=== PATIENT | female | born 1960 | race Caucasian/White ===

== ENCOUNTER 2025-02-11 10:45 | Emergency (ER) | payer OTHER ==
--- OUTSIDE RECORDS SUMMARY | 2025-02-11 10:47 | XMS REPORT | Continuity of Care Document ---
Author Name Unknown Address [address] [place] [address] [facility] Address 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 Name Role Phone EPIFANIO HDZ Primary Care Physician Unav ailable RADIOLOGY Attending Clinician Unavailable Radiology Attending Clinician Unavailable Doctor Unassigned, Watrous Attending Clinician U navailable LISA, OFONIME Admitting Clinician Unavailable Payers Payer Name Policy Type Policy Number Effective Date Expirati on Date Source [employer] [place] [employer] [id number] 2018 00:00:00 Allergies, Adverse Reactions, Alerts Allergy Name Allergy Type Status Severity Reaction(s) Onset Date Inactive Date Treating Clinician Comments Source NO KNOWN ALLERGIE S Drug Class Active [facility] Social History Social Habit Start Date Stop Date Quantity Comments Source Sex Assigned At 1960 00:00:00 1960 00:00:00 [facility] Smoking Status Start Date Stop Date Source Unknown if ever smoked [facility]ive [facility] Procedures Procedure Date / Time Performed Performing Clinicia n Source XR FOOT 3+ VW LEFT 2021-12-06 18:36:00 [facility]ENEF[facility] 2021-12-06 18:21:37 Docto r Unassigned, Watrous [facility] XR CHEST 2 VW 2020-12-04 17:39:01 Kevin Murguia [facility] Encounters Start Date/Time End Date/Time Encounter Type Admission Type Attending Clinicians Care Facility Care Department Encounter ID Source 2021-12-06 13:24:27 2021-12-06 23:59:00 Outpatient R RADIOLOGY [facility] [id number] [facility] 2021-12-06 13:15:00 2021-12-06 23:59:00 Hospital Encounter Radiology [facility] [id number] [facility] 2021-12-06 00:00:00 2021-12-06 00:00:00 Orders Only Doctor Unassigned, Watrous [facility] [id number] [facility] 2020-12-04 12:21:50 2020-12-04 23:59:00 Hospital Encounter Radiology [facility] [id number] [facility] 2020-12-04 00:00:00 2020-12-04 00:00:00 Outpatient R RADIOLOGY [facility] [id number] [facility] Results Test Description Test Time Test Comments Results Resul t Comments Source XR CHEST 2 VW 2020-11-15 1 21:07:42 No acute cardiopulmonary disease. CHEST 2 VIEWS: HISTORY:Cough TECHNIQUE:: ?PA and lateral views of the chest are obtained. FINDINGS: The lungs are clear. Heart size is slightly enlarged.Calcificati ons are seen in the aortic arch.. No pleural effusion orpneumothorax is seen. [facility], Radiant Results Inft User - 12/04/2020 4:08 PM CDT CHEST 2 VIEWS:HISTORY:CoughT ECHNIQUE:: PA and lateral views of the chest are obtained. FINDINGS: The lungs are clear. Heart size is slightly enlarged.Calcificati ons are seen in the aortic arch.. No pleural effusion orpneumothorax is seen.IMPRESSIONNo acute cardiopulmonary disease. [facility]
[2025-02-11 12:54] LABS: Absolute Lymphocytes (CBC) 1.0 K/uL (0.7-4.9); Hematocrit 27.1 % (36.0-45.0); Hemoglobin 7.9 g/dL (12.0-15.0); MCH 20.8 pg (27.0-35.0); MCHC 29.0 g/dL (32.0-36.0); MCV 71.8 fL (80-100); MPV 7.4 fL (7.6-11.3); Nucleated RBC Absolute Count 0.0 (0-0); Nucleated Red Blood Cells % 0.0 % (0-0); RBC Red Blood Cell Count 3.78 M/uL (3.86-4.86); White Blood Count 6.30 thou/uL (4.3-10.9)
[2025-02-11 13:20] LABS: ALT/SGPT 31.0 U/L (13-56); AST/SGOT 35.0 U/L (15-37); Albumin 3.0 g/dL (3.4-5.0); Albumin/Globulin Ratio 0.7 (1.1-1.8); Alkaline Phosphatase 87.0 U/L (45-117); Anion Gap 9.8 mEq/L (5.0-15.0); BUN Blood Urea Nitrogen 6.0 mg/dL (7-18); Ferritin 5.8 ng/mL (8-252); Globulin 4.3 g/dL (2.3-3.5); Glucose Level 97.0 mg/dL (74-106); Potassium 3.8 mEq/L (3.5-5.1)
[2025-02-11 13:43] LABS: Blood Morphology Comment NOTED (NOT SEEN); Hypochromasia 1+; White Blood Cell Scan OK (OK)
[2025-02-11] MEDS ORDERED: NA CHLORIDE 0.9% 250 ML ONE (15:33)
--- NOTE | 2025-02-11 17:59 | ER ---
Nurse's Notes [facility] Name: Patti Penny Age: 64 yrs Sex: Female : 1960 Arrival Date: 02/11/2025 Time: 10:45 Bed 15 Private MD: Diagnosis: Anemia, unspecified;Iron deficiency anemia, unspecified Presentation: 02/11 11:06 Chief complaint: Patient states: "I had blood work with my doctor and they think I have aa5 an ulcer but today they called me and said my hemoglobin was 7.4 and to come to the ER". Pt reports fatigue and SOB on exertion x 2-3 months. Coronavirus screen: At this time, the client does not indicate any symptoms associated with coronavirus-19. Ebola Screen: Patient denies travel to an Ebola-affected area in the 21 days before illness onset. Initial Sepsis Screen: Does the patient meet any 2 criteria? HR > 90 bpm. Does the patient have a suspected source of infection? No. Patient's initial sepsis screen is negative. Risk Assessment: Do you want to hurt yourself or someone else? Patient reports no desire to harm self or others. Onset of symptoms was February 11, 2025. 11:06 Acuity: RUBEN 3 aa5 11:06 Method Of Arrival: Ambulatory aa5 Historical: - Allergies: 11:08 No Known Allergies; aa5 - Home Meds: 11:08 None [Active]; aa5 - PMHx: 11:08 None; aa5 - PSHx: 11:08 cataracts; aa5 - Immunization history:: Adult Immunizations unknown. - Infectious Disease History:: Denies. - Social history:: Smoking status: Patient denies any tobacco usage or history of. Screenin:01 [facility] ED Fall Risk Assessment (Adult) History of falling in the last 3 months, cm10 including since admission No falls in past 3 months (0 pts) Confusion or Disorientation No (0 pts) Intoxicated or Sedated No (0 pts) Impaired Gait No (0 pts) Mobility Assist Device Used No (0 pt) Altered Elimination No (0 pt) Score/Fall Risk Level 0 - 2 = Low Risk Oriented to surroundings, Maintained a safe environment, Hourly rounding (assess needs \\T\\ fall precautionary measures) done. Abuse screen: Denies threats or abuse. Denies injuries from another. Nutritional screening: No deficits noted. Tuberculosis screening: No symptoms or risk factors identified. Assessment: 12:59 General: Appears in no apparent distress. comfortable, Behavior is calm, cooperative, cm10 appropriate for age. Pain: Denies pain. Neuro: No deficits noted. Level of Consciousness is awake, alert, obeys commands, Oriented to person, place, time, situation, Appropriate for age. Cardiovascular: Patient's skin is warm and dry. Respiratory: No deficits noted. Airway is patent Respiratory effort is even, unlabored, Respiratory pattern is regular, symmetrical, Breath sounds are clear bilaterally. Derm: No deficits noted. No signs and/or symptoms reported regarding the dermatologic system. Skin is pink, warm \\T\\ dry. Musculoskeletal: No deficits noted. Range of motion: intact in all extremities. 13:58 Reassessment: Patient appears in no apparent distress at this time. Patient and/or kj2 family updated on plan of care and expected duration. Pain level reassessed. Patient is alert, oriented x 3, equal unlabored respirations, skin warm/dry/pink. 14:51 Reassessment: Patient appears in no apparent distress at this time. Patient and/or kj2 family updated on plan of care and expected duration. Pain level reassessed. Patient is alert, oriented x 3, equal unlabored respirations, skin warm/dry/pink. 16:00 Reassessment: Patient appears in no apparent distress at this time. Patient and/or kj2 family updated on plan of care and expected duration. Pain level reassessed. Patient is alert, oriented x 3, equal unlabored respirations, skin warm/dry/pink. 16:25 Reassessment: Patient appears in no apparent distress at this time. Patient and/or kj2 family updated on plan of care and expected duration. Pain level reassessed. blood transfusion started. 17:25 Reassessment: Patient appears in no apparent distress at this time. Patient and/or kj2 family updated on plan of care and expected duration. Pain level reassessed. Patient is alert, oriented x 3, equal unlabored respirations, skin warm/dry/pink. 18:15 Reassessment: blood still transfusing. kj2 18:56 Reassessment: Patient appears in no apparent distress at this time. Patient and/or kj2 family updated on plan of care and expected duration. Pain level reassessed. Patient is alert, oriented x 3, equal unlabored respirations, skin warm/dry/pink. blood stopped. Vital Signs: 11:06 BP 153 / 85; Pulse 100; Resp 18 S; Temp 98.7(O); Pulse Ox 99% on R/A; Weight 89.36 kg aa5 (R); Height 5 ft. 3 in. (R); 12:19 BP 149 / 69; Pulse 105; Temp 98.2; Pulse Ox 100% ; Weight 89.36 kg; Height 5 ft. 3 in. pm7 ; Pain 0/10; 13:00 BP 123 / 65; Pulse 98; Resp 16 S; Pulse Ox 100% ; cm10 14:51 BP 124 / 71; Pulse 99; Resp 18; Pulse Ox 100% on R/A; kj2 16:00 BP 139 / 71; Pulse 97; Resp 18; Pulse Ox 99% on R/A; kj2 16:25 BP 136 / 65; Pulse 94; Resp 18; Temp 98.3; Pulse Ox 100% on R/A; kj2 17:25 BP 134 / 62; Pulse 90; Resp 18; Temp 98.1; Pulse Ox 100% ; kj2 18:25 BP 138 / 62; Pulse 94; Resp 20; Temp 98.1; Pulse Ox 100% ; kj2 18:56 BP 140 / 59; Pulse 89; Resp 20; Temp 98.2; Pulse Ox 100% ; kj2 12:19 Body Mass Index 34.90 (89.36 kg, 160.02 cm) pm7 12:19 Pain Scale: Adult pm7 ED Course: 10:48 Patient arrived in ED. im 10:49 Tate Duque FNP-C is PHCP. cm10 10:49 Audi Watters MD is Attending Physician. cm10 11:06 Arm band placed on. aa5 11:07 Triage completed. aa5 12:59 Deloris Herrera, FRED is Primary Nurse. cm10 13:01 Patient has correct armband on for positive identification. Placed in gown. Call light cm10 in reach. Side rails up X 1. Pulse ox on. NIBP on. 13:02 Inserted saline lock: 20 gauge in left antecubital area, using aseptic technique. Blood cm10 collected. Flushed with 10 mL NS. 13:49 Report given to FRED Lazo. cm10 13:54 Violet Vargas, RN is Primary Nurse. kj2 13:58 Report received from Singh Puentes RN. kj2 14:08 Initial lab(s) drawn, by seed laboratory technician, sent to lab. ts3 19:25 No provider procedures requiring assistance completed. IV discontinued, intact, kj2 bleeding controlled, No redness/swelling at site. Pressure dressing applied. Administered Medications: No medications were administered Medication: 13:01 VIS not applicable for this client. cm10 Outcome: 17:59 Discharge ordered by . dr5 18:59 Patient left the ED. kj2 Signatures: Lay Conner, RN RN aa5 Karissa Ceron Clarissa, RN RN cm10 Violet Vargas RN RN kj2 Tate Duque, BUNG DROPPER-C BUNG DROPPER-Cdr5 Bushra Cee ts3 Ana Paula Pierre pm7 Corrections: (The following items were deleted from the chart) 14:10 14:08 Lab(s) recollected, by seed laboratory technician, sent to lab. ts3 ts3 16:11 16:00 BP 113 / 65; Pulse 109bpm; Resp 20bpm; Pulse Ox 96%; kj2 kj2
--- NOTE | 2025-02-11 18:00 | EDPHYS ---
Physician Documentation [facility] Name: Patti Penny Age: 64 yrs Sex: Female : 1960 Arrival Date: 02/11/2025 Time: 10:45 Bed 15 Private MD: ED Physician Audi Watters HPI: 02/11 12:29 This 64 yrs old Female presents to ER via Ambulatory with complaints of dr5 Abnormal Lab Results - low hemoglobin. 12:29 Onset: The symptoms/episode began/occurred 3 month(s) ago. Patient is a 64 female with dr5 no past medical history coming in with fatigue and weakness has been going on for the past 3 months. Patient reports that she is felt tired and weak when she ambulates. Patient denies hemoptysis, melena, hematuria, or any other bleeding. Patient reports that she finally got blood work done and found to have low hemoglobin. Patient denies any chest pain, shortness of breath or complaints at this time. Patient states that she was sent here for blood transfusion.. Historical: - Allergies: 11:08 No Known Allergies; aa5 - Home Meds: 11:08 None [Active]; aa5 - PMHx: 11:08 None; aa5 - PSHx: 11:08 cataracts; aa5 - Immunization history:: Adult Immunizations unknown. - Infectious Disease History:: Denies. - Social history:: Smoking status: Patient denies any tobacco usage or history of. ROS: 12:29 Constitutional: as per hpi dr5 Exam: 12:29 Constitutional: This is a well developed, well nourished patient who is awake, alert, dr5 and in no acute distress. Head/Face: Normocephalic, atraumatic. Eyes: Pupils equal round and reactive to light, extra-ocular motions intact. Lids and lashes normal. Conjunctiva and sclera are non-icteric and not injected and pale. Cornea within normal limits. Periorbital areas with no swelling, redness, or edema. Neck: Trachea midline, no thyromegaly or masses palpated, and no cervical lymphadenopathy. Supple, full range of motion without nuchal rigidity, or vertebral point tenderness. No Meningismus. Chest/axilla: Normal chest wall appearance and motion. Nontender with no deformity. No lesions are appreciated. Cardiovascular: Regular rate and rhythm with a normal S1 and S2. Normal PMI, no JVD. No pulse deficits. Respiratory: Lungs have equal breath sounds bilaterally, clear to auscultation. No rales, rhonchi or wheezes noted. No increased work of breathing, no retractions or nasal flaring. Back: No spinal tenderness. No costovertebral tenderness. Full range of motion. Skin: Warm, dry with normal turgor. Normal color with no rashes, no lesions, and no evidence of cellulitis. MS/ Extremity: Pulses equal, no cyanosis. Neurovascular intact. Full, normal range of motion. Neuro: Awake and alert, GCS 15, oriented to person, place, time, and situation. Cranial nerves II-XII grossly intact. Motor strength 5/5 in all extremities. Sensory grossly intact. Cerebellar exam normal. Normal gait. Vital Signs: 11:06 BP 153 / 85; Pulse 100; Resp 18 S; Temp 98.7(O); Pulse Ox 99% on R/A; Weight 89.36 kg aa5 (R); Height 5 ft. 3 in. (R); 12:19 BP 149 / 69; Pulse 105; Temp 98.2; Pulse Ox 100% ; Weight 89.36 kg; Height 5 ft. 3 in. pm7 ; Pain 0/10; 13:00 BP 123 / 65; Pulse 98; Resp 16 S; Pulse Ox 100% ; cm10 14:51 BP 124 / 71; Pulse 99; Resp 18; Pulse Ox 100% on R/A; kj2 16:00 BP 139 / 71; Pulse 97; Resp 18; Pulse Ox 99% on R/A; kj2 16:25 BP 136 / 65; Pulse 94; Resp 18; Temp 98.3; Pulse Ox 100% on R/A; kj2 17:25 BP 134 / 62; Pulse 90; Resp 18; Temp 98.1; Pulse Ox 100% ; kj2 18:25 BP 138 / 62; Pulse 94; Resp 20; Temp 98.1; Pulse Ox 100% ; kj2 18:56 BP 140 / 59; Pulse 89; Resp 20; Temp 98.2; Pulse Ox 100% ; kj2 12:19 Body Mass Index 34.90 (89.36 kg, 160.02 cm) pm7 12:19 Pain Scale: Adult pm7 MDM: 10:50 Medical Screening Exam initiated dr5 18:04 Differential diagnosis: Iron deficiency anemia, electrolyte abnormality, acute kidney dr5 injury. Data reviewed: vital signs, nurses notes. 18:35 Consideration of Admission/Observation Escalation of care including dr5 admission/observation considered. Admission considered if patient found to be anemic with worsening labs from yesterday.. I considered the following discharge prescriptions or medication management in the emergency department I discussed and recommended Over The Counter medications, Medications were administered in the Emergency Department. See MAR. Test considered but Not performed: CT: CT scan considered but not done due to no melena and patient not having nausea, vomiting, or abdominal pain.. Historians other than the Patient: Spouse/Significant Other: Spouse at bedside. Care significantly affected by the following Social Determinants of Health: Poor access to healthcare and/or lack of insurance, Poor access to transportation, Problems related to employment. Counseling: I had a detailed discussion with the patient and/or guardian regarding the historical points, exam findings, and any diagnostic results supporting the discharge/admit diagnosis, the presence of at least one elevated blood pressure reading (>120/80) during this emergency department visit, lab results, the need for outpatient follow up, for definitive care, a family practitioner, to return to the emergency department if symptoms worsen or persist or if there are any questions or concerns that arise at home. Response to treatment: the patient's symptoms have markedly improved after treatment. Special discussion: I discussed with the patient/guardian in detail that at this point there is no indication for admission to the hospital. It is understood, however, that if the symptoms persist or worsen the patient needs to return immediately for re-evaluation. Further emergent ED testing is not indicated at this point in time. I discussed with the patient/guardian in detail the need to arrange with the PCP or specialist further outpatient testing, Anemia workup. Based on the history and exam findings, there is no indication for further emergent testing or inpatient evaluation. I discussed with the patient/guardian the need to see the primary care provider for further evaluation of the symptoms. ED course: Patient received 1 unit of blood and feels much better. Will start patient on iron. All questions answered. Strict ER precautions given. Labs printed out given to patient to take to her primary care doctor.. 02/11 11:12 Order name: CBC with Diff; Complete Time: 13:44 dr5 02/11 11:12 Order name: CMP; Complete Time: 13:26 dr5 02/11 11:12 Order name: Iron Level; Complete Time: 13:26 dr5 02/11 12:58 Order name: CBC Smear Scan; Complete Time: 13:44 EDMS 02/11 13:54 Order name: PRBC dr5 02/11 13:56 Order name: ABO/RH typing EDMS 02/11 13:56 Order name: Antibody Screen EDMS 02/11 14:46 Order name: ABO/RH no charge; Complete Time: 14:50 EDMS Administered Medications: No medications were administered Disposition Summary: 02/11/25 17:59 Discharge Ordered Notes: Location: Home dr5 Condition: Stable dr5 Diagnosis - Anemia, unspecified dr5 - Iron deficiency anemia, unspecified dr5 Followup: dr5 - With: Emergency Department - When: As needed - Reason: Worsening of condition Followup: dr5 - With: Private Physician - When: 1 - 2 days - Reason: Recheck today's complaints, Continuance of care, Re-evaluation by your physician Discharge Instructions: - Discharge Summary Sheet dr5 - Iron Deficiency Anemia, Adult dr5 Forms: - Medication Reconciliation Form dr5 - Patient Portal Instructions dr5 - Leadership Thank You Letter dr5 Prescriptions: - Ferrous Sulfate 325 mg (65 mg Iron) Oral Tablet - take 1 tablet ORAL route every 8 hours; 90 tablet; Refills: 0, Product dr5 Selection Permitted Critical care time excluding procedures: 18:35 Critical care time: Bedside Care: 20 minutes, Consultation: 5 minutes, Family dr5 Intervention: 7 minutes. Total time: 32 minutes Addendum: 02/14/2025 07:45 Co-signature as Attending Physician, Audi Watters MD I reviewed the patient's care r n provided by the Advanced Practice Provider and agree with the diagnosis and treatment plan. Signatures: Dispatcher [employer] [facility] Audi Watters MD MD rn Calderon, Audri RN RN aa5 Tate Duque, DBAS-C DBAS-Cdr5 Corrections: (The following items were deleted from the chart) 02/11 14:04 13:54 TYPE AND SCREEN+[id number] ordered. EDAL EDAL
[2025-02-11 19:12] VITALS: O2SAT 100
[2025-02-11 19:17] VITALS: BP 140/59; TEMP 98.2
== END 2025-02-11 18:59 | disposition home or self-care (01) ==
LOC: ER 10:45
PROC: 30233N1 Transfusion of Nonautologous Red Blood Cells into Peripheral Vein, Percutaneous Approach (ICD-10-PCS; principal; 2025-02-11)
DX: D50.9 Iron deficiency anemia, unspecified (principal)
CPT/HCPCS: 85025; 36415; 86900; 86850; 86901; 86920; 82728; 80053; 99284; 36430; P9016; J7050